=== PATIENT | female | born 1980 | race African-American/Black ===

== ENCOUNTER 2018-10-09 01:08 | Emergency (ER) | payer OTHER ==
[~2018-10-09] VITALS: Ht 162.6 cm; Wt 90.7 kg
[2018-10-09 01:20] VITALS: BP 106/68
[2018-10-09] MEDS ORDERED: HYDROcodone/Acetamin 5/325 tab ORAL ONE (01:30)
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
[2018-10-09] MEDS ORDERED: IBUPROFEN600 MG ORAL (04:00)
[2018-10-09 04:04] VITALS: BP 106/68
--- NOTE | 2018-10-09 10:55 | Diagnostic Imaging Report ---
Indications: Head trauma, pain Technique: Spiral acquisitions obtained through the brain. Angled axial and coronal 5 x 5 mm slices were reconstructed. Total dose length product 1397 mGycm. CTDI vol(s) 70 mGy. Dose reduction achieved using automated exposure control Comparison: None. Findings: There is a large right high parietal scalp hematoma. The calvarium is intact. No acute intracranial hemorrhage or edema, mass effect, nor midline shift. Normal pritchard-white differentiation. Normal-sized ventricles and extra axial CSF spaces. Visualized orbits and sinuses are unremarkable. Impression: Negative for acute intracranial bleed or mass effect Right parietal scalp hematoma This agrees with the preliminary interpretation provided overnight by [facility]. The CT scanner at [facility] is accredited by the [employer] and the scans are performed using protocols designed to limit radiation exposure to as low as reasonably achievable to attain images of sufficient resolution adequate for diagnostic evaluation.
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
== END 2018-10-09 04:06 | disposition home or self-care (01) ==
LOC: EDBD 01:08 → EDUNIT# 01:08 → EMR 01:49
DX: S00.03XA Contusion of scalp, initial encounter (principal); S00.83XA Contusion of other part of head, initial encounter; Y04.2XXA Assault by strike against or bumped into by another person, initial encounter
CPT/HCPCS: 70450; 70486; 99284